=== PATIENT | male | born 1945 | race Caucasian/White ===

== ENCOUNTER → 2019-12-28 | Outpatient (CLI) | payer MEDICARE ==
[~2019-12-28] MED LIST: Aspir 8181 MG; BACL10 PO; BUSP15; FOSI10 PO; HYDROCODON-ACE1 EAC3; Hydrocodone-Ap1 EA20; IBUP600; MULTI VITAMIN1 EACH; OMEP40CA12 PO; SERT100 PO; TRAM50 PO; TRAZ100 PO; VITAMIN D35000 UNIT PO
== END | disposition home or self-care (01) ==
LOC: PLD 07:58 → LAB SHORT 07:58
DX: L60.2 Onychogryphosis (principal)
CPT/HCPCS: 88305; 88312

== ENCOUNTER → 2023-05-06 | Outpatient (CLI) | payer MEDICARE ==
[2023-05-07 08:57] LABS: Stool Occult Bld Immuno 1 Negative (NEGATIVE)
== END | disposition home or self-care (01) ==
LOC: LAB 10:00 → LAB SHORT 10:00
PROVIDERS: Family Medicine
DX: D64.9 Anemia, unspecified (principal)
CPT/HCPCS: 82274

== ENCOUNTER → 2023-05-08 | Outpatient (CLI) | payer MEDICARE ==
[2023-05-11 09:33] LABS: Stool Occult Bld Immuno 1 Negative (NEGATIVE); Stool Occult Bld Immuno 2 Negative (NEGATIVE)
== END | disposition home or self-care (01) ==
LOC: LAB 09:30 → LAB SHORT 09:30
PROVIDERS: Family Medicine
DX: D64.9 Anemia, unspecified (principal)
CPT/HCPCS: 82274